=== PATIENT | female | born 1975 | race Hispanic/Latino ===

== ENCOUNTER 2022-10-15 13:49 | Emergency (ER) | payer SELFPAY ==
[2022-10-15] MEDS ORDERED: Oxymetazoline HCl 0.05% (30 ML BOT) ONE (14:20)
== END 2022-10-15 15:37 | disposition home or self-care (01) ==
LOC: ERS 13:49
DX: R04.0 Epistaxis (principal); E11.9 Type 2 diabetes mellitus without complications; Z79.899 Other long term (current) drug therapy
CPT/HCPCS: 99283